=== PATIENT | female | born 1950 | race Caucasian/White ===

== ENCOUNTER 2017-04-29 23:37 | Inpatient (IN) | payer BC ==
[~2017-04-29] VITALS: Ht 165.1 cm; Wt 97.3 kg
[2017-04-30 00:25] LABS: ADD MIUA? YES; BILIRUBIN NEGATIVE; BLOOD MODERATE; COLOR YELLOW ((YELLOW)); GLUCOSE (STRIP) NEGATIVE; KETONES NEGATIVE; LEUKOCYTES LARGE; NITRITE POSITIVE; PROTEIN (STRIP) 30; UROBILINOGEN 0.2 MG/DL (0.2-1.0)
[2017-04-30 00:50] LABS: EOSINOPHIL (%) 0.5 % (0-5); EOSINOPHIL COUNT 0.1 K/uL (0-0.3); HEMATOCRIT 36.6 % (36.0-46.0); IMMATURE GRANULOCYTE (%) 0.3 % (0.0-0.7); LYMPHOCYTE COUNT 1.4 K/uL (1.0-2.8); MCH 31.3 PG (29.0-34.0); MCHC 33.9 G/DL (30.0-36.0); MCV 92.4 FL (83-99); MEAN PLAT.VOLUME 9.7 uM^3 (9.5-12.4); MONOCYTE (%) 3.9 % (3-12); MONOCYTE COUNT 0.4 K/uL (0-0.8); NEUTROPHIL (%) 82.3 % (45-76); PLATELET COUNT 247 K/uL (156-360); RBC DIS.WIDTH-CV 12.6 % (11.8-14.6); RBC DIS.WIDTH-SD 42.8 % (39-53); RED BLOOD COUNT 3.96 M/uL (3.80-5.20); WHITE BLOOD COUNT 10.9 K/uL (4.1-10.2)
[2017-04-30 00:52] LABS: BACTERIA 2+ /HPF; WHITE BLOOD CELLS TNTC /HPF (0-5)
[2017-04-30 00:53] LABS: EPITHELIAL CELLS 1+ /HPF; MUCUS RARE /LPF
[2017-04-30 00:54] LABS: CASTS NONE SEEN /LPF; CRYSTALS NONE SEEN; UCUL ADDED? YES
[2017-04-30 00:59] LABS: CHLORIDE 106 mEq/L (99-109); SODIUM 136 mEq/L (136-147)
[2017-04-30 01:01] LABS: GLUCOSE 130 mg/dL (70-99)
[2017-04-30 01:03] LABS: ANION GAP 7 MEQ/L (2-14); TOTAL BILIRUBIN 0.7 mg/dL (0.0-1.0)
[2017-04-30 01:05] LABS: ALKALINE PHOSPHATASE 138 IU/L (3-129); GFR ESTIMATE (CALCULATED) > 59 mL/min/
[2017-04-30 01:06] LABS: UREA NITROGEN (BUN) 22 mg/dL (9-23)
[2017-04-30] MEDS ORDERED: RALOXIFENE HCL60 MG PO (01:46)
[2017-04-30] MEDS ORDERED: ROSUVASTATIN CAL5 MG PO (01:47)
[2017-04-30] MEDS ORDERED: CELECOXIB200 MG PO (01:47)
[2017-04-30] MEDS ORDERED: FUROSEMIDE20 MG PO (01:48)
[2017-04-30] MEDS ORDERED: RABEPRAZOLE SOD20 MG PO (01:49)
[2017-04-30] MEDS ORDERED: LO-DOSE ASPIRIN81 M2 PO (01:51)
[2017-04-30] MEDS ORDERED: TYLENOL PM EX-1 EACH PO (01:52)
[2017-04-30] MEDS ORDERED: IBUPROFEN800 MG PO (01:53)
[2017-04-30] MEDS ORDERED: ONE DAILY1 EAC3 PO (01:55)
[2017-04-30] MEDS ORDERED: VITAMIN D31000 UNI2 PO (01:56)
[2017-04-30] MEDS ORDERED: CALCIUM + D3 E1 EACH PO (01:57)
[2017-04-30] MEDS ORDERED: UNISOM SLEEP AI25 MG PO (01:58)
[2017-04-30 02:52] VITALS: BP 129/75
[2017-04-30 07:07] VITALS: BP 114/52
[2017-04-30 07:10] LABS: ALKALINE PHOSPHATASE 132 IU/L (3-129); DIRECT BILIRUBIN 0.2 mg/dL (0.0-0.3); TOTAL BILIRUBIN 0.7 MG/DL (0.0-1.0)
[2017-04-30 13:02] VITALS: BP 132/63
[2017-04-30 16:10] VITALS: BP 119/59
[2017-04-30 19:54] VITALS: BP 143/66
[2017-04-30 23:56] VITALS: BP 133/63
[2017-05-01 06:55] LABS: HEMATOCRIT 38.3 % (36.0-46.0); MCH 30.4 PG (29.0-34.0); MCHC 32.6 G/DL (30.0-36.0); MCV 93.2 FL (83-99); PLATELET COUNT 248 K/uL (156-360); RBC DIS.WIDTH-SD 44.6 % (39-53); RED BLOOD COUNT 4.11 M/uL (3.80-5.20); WHITE BLOOD COUNT 8.3 K/uL (4.1-10.2)
[2017-05-01] MEDS ORDERED: LEVAQUIN500 MG PO (07:09)
[2017-05-01 07:19] LABS: ANION GAP 10 MEQ/L (2-14); CHLORIDE 108 MEQ/L (99-109); GFR ESTIMATE (CALCULATED) > 59 mL/min/; GLUCOSE 98 mg/dL (70-99); SAMPLE HEMOLYSIS CHECK 0; SAMPLE ICTERIC CHECK 0; SAMPLE LIPEMIA CHECK 0; SODIUM 142 MEQ/L (136-147); UREA NITROGEN (BUN) 10 mg/dL (9-23)
[2017-05-01 08:00] VITALS: BP 132/65
[2017-05-01 10:52] VITALS: BP 126/60
== END 2017-05-01 13:37 | disposition home or self-care (01) | DRG 690 ==
LOC: EME 23:37 → 2EAST 04-30 01:36 → EDOF 04-30 01:36 → ENRESERV 04-30 01:46 → 2EAST 04-30 02:35
PROVIDERS: Emergency Medicine; Hospitalist
DX: N39.0 Urinary tract infection, site not specified (principal); M48.56XA Collapsed vertebra, not elsewhere classified, lumbar region, initial encounter for fracture; B96.20 Unspecified Escherichia coli [E. coli] as the cause of diseases classified elsewhere; E66.9 Obesity, unspecified; G43.909 Migraine, unspecified, not intractable, without status migrainosus; E78.5 Hyperlipidemia, unspecified; Z88.0 Allergy status to penicillin; Z87.442 Personal history of urinary calculi; Z68.35 Body mass index [BMI] 35.0-35.9, adult; Z79.82 Long term (current) use of aspirin
CPT/HCPCS: 74176; 80048; 80053; 80076; 81003; 83605; 85025; 85027; 87040; 87077; 87086; 87186; 99281; 99285; J1650; J1956; J7030